=== PATIENT | female | born 1985 | race Caucasian/White ===

== ENCOUNTER 2018-11-11 19:03 | Emergency (ER) | payer SELFPAY ==
[~2018-11-11] VITALS: Ht 188 cm; Wt 93.2 kg
[2018-11-11 19:05] VITALS: BP 139/93
[2018-11-11] MEDS ORDERED: IBUPROFEN 800 MG TABLET ONE (19:16)
[2018-11-11] MEDS ORDERED: IBUPROFEN 800 MG TABLET PO STA (19:24)
[2018-11-11 19:46] LABS: HCG UR SG 1.004 (1.003-1.030)
[2018-11-11 19:54] LABS: MICROSCOPIC INDICATED
[2018-11-11 19:58] LABS: CULTURE INDICATED? YES
== END 2018-11-11 19:32 | disposition home or self-care (01) ==
LOC: ED 19:21
DX: N30.00 Acute cystitis without hematuria (principal)
CPT/HCPCS: 81001; 81025; 87086; 87147; 99283